=== PATIENT | female | born 1985 | race Caucasian/White ===

== ENCOUNTER 2025-04-07 11:28 | Emergency (ER) | payer OTHER, SELFPAY ==
[2025-04-07] VITALS (15 sets, daily range): BP systolic 103–155; BP diastolic 60–107; PULSE 55–84; RESP 12–20; TEMP 36.6–36.8; O2SAT 98–100; BMI 53.8
--- NOTE | 2025-04-07 11:48 | RAD_ITS ---
PROCEDURE: CHEST 1 VIEW (PORTABLE) 04/07/2025 REASON FOR EXAM: CHEST PAIN TECHNIQUE: Frontal view of the chest. COMPARISON: None FINDINGS: Hardware: EKG leads Heart: The heart size is normal. Lungs: The lungs are clear. Bones: The bones are unremarkable. RAD/Chest 1 View (Portable) IMPRESSION: No acute cardiopulmonary process Reading Location: [id number]
--- NOTE | 2025-04-07 11:49 | ED.VIS.CHEST ---
HPI History of Present Illness Chief Complaint: Chest Pain Detail of Chief Complaint: Chest pain Informant: patient Narrative Narrative: Patient presents with chest pain is here this morning around 7:45 AM. Patient states initially she experiencing sharp stabbing pain in her left chest. Pain and became dull and pressure and heavy like radiating to her jaw and neck and left arm. She continues to have the pain and rates it about an 8 out of 10. She states that yesterday she had some mild shortness of breath with walking which is unusual. She did have recent travel where she drove to [place] 2 weeks ago which is about 6 hours away. No prior history of PE or DVT. Her father had stents in his heart and in his 50s. She herself has no medical history otherwise. She denies recent illness. PFSH PFSH Allergy/AdvReac Type Severity Reaction Status Date / Time No Known Allergies Allergy Verified 04/07/25 11:31 Social History Smoking Status: Never smoker ROS ROS ED Review of Systems ROS Unobtainable: other Constitutional Constitutional ED: Reports lethargy; Denies chills, fever(s), sweats or weight loss Eyes Eyes: Denies blurry vision, change in vision or diplopia ENT ENT ED: Denies rhinorrhea or sore throat Cardiovascular Cardiovascular: Reports chest pain; Denies orthopnea or racing heartbeat Respiratory/Chest Respiratory/Chest: Reports dyspnea and dyspnea on exertion; Denies cough, orthopnea or sputum Gastrointestinal Gastrointestinal: Denies abdominal pain, diarrhea, nausea or vomiting Genitourinary Genitourinary ED: Denies dysuria, hematuria or urinary frequency Musculoskeletal Musculoskeletal: Denies arthralgias, back pain, myalgias or neck pain Integumentary Denies abscess, Abrasions or rash Neurologic Neurologic: Denies headache(s) or weakness Psychiatric Psychiatric: Denies anxiety, depression or suicidal thoughts Endocrine Endocrinology: Denies polydipsia, polyphagia or polyuria Hematologic/Lymphatic Hematologic/Lymphatic: Denies easy bleeding, easy bruising or lymphadenopathy Allergic/Immunologic Allergic/Immunologic ED: Denies mouth swelling, tongue swelling or urticaria EXAM Physical Exam Const Vital Signs: 04/07/25 11:29 04/07/25 12:08 04/07/25 12:09 Temperature 98.2 F Temperature Source Oral Pulse Rate 84 79 Respiratory Rate 18 Blood Pressure 151/107 H 132/81 H Blood Pressure Mean 121 Pulse Ox 98 Oxygen Delivery Method Room Air Room Air 04/07/25 12:41 04/07/25 12:45 04/07/25 13:00 Temperature Temperature Source Pulse Rate 71 65 67 Respiratory Rate 17 20 H 18 Blood Pressure 123/82 H 103/68 Blood Pressure Mean 96 80 Pulse Ox 100 100 Oxygen Delivery Method Room Air Room Air 04/07/25 13:15 04/07/25 13:30 04/07/25 13:31 Temperature Temperature Source Pulse Rate 68 Respiratory Rate 14 Blood Pressure 114/86 H 127/94 H Blood Pressure Mean 95 105 Pulse Ox 100 100 Oxygen Delivery Method Room Air 04/07/25 13:45 Temperature Temperature Source Pulse Rate 68 Respiratory Rate 15 Blood Pressure Blood Pressure Mean Pulse Ox 100 Oxygen Delivery Method Positive well nourished and well developed General Appearance ED: well developed and NAD HEENT Reports TM's clear and moist mucous membranes normocephalic and atraumatic; Negative for trauma or tenderness Tympanic Membrane ED: Yes TM's clear Eyes PERRL and EOMs intact bilaterally General Eye ED: Negative for pale conjunctiva or scleral icterus Neck no lymphadenopathy, supple and no JVD General: Negative for tenderness Chest Wall inspection of chest normal and palpation of chest normal Chest: Negative for tenderness Resp normal respiratory effort and clear to auscultation bilaterally Effort and Inspection: Negative for respiratory distress or pain with movement Auscultation: Negative for rhonchi, wheezes or diminished lung sounds Cardio regular rate, regular rhythm, S1 normal heart sound, S2 normal heart sound and no murmurs Peripheral Pulses: pulses 2+ throughout GI normal to inspection, nondistended, normoactive bowel sounds, soft to palpation, non-tender, non-distended and no masses Back/Spine no CVA tenderness and no thoracic nor lumbar tenderness Extremity normal to inspection General Extremety ED: Negative for edema General Extremity: Negative for edema Neuro oriented x3, CN's II-XII intact bilaterally, no sensory deficits noted and gait normal Sensorium / Orientation: awake, alert, oriented to person, oriented to place and oriented to time Motor Exam: strength 5/5 throughout and strength abnormal Psych mental status grossly normal Skin no rashes or lesions noted and no wounds Heart Score History: Moderately Suspicious ECG: Normal Age: </= 45 years Risk Factors: 1 or 2 Risk Factors Troponin: </= Normal Limit Score: 2 MDM MDM MDM Narrative Medical decision making narrative: Patient presents with sudden onset of chest discomfort radiating to the arm the neck and the jaw with shortness of breath and lightheadedness. Symptoms came on at rest while driving. She has no significant risk factors for heart disease. She did travel to [place] 2 weeks ago via car which is 6 hours away. On exam she clinically looks well. EKG obtained on arrival showed a sinus rhythm with ventricular rate of 81 bpm with no acute ST segment changes. Patient received aspirin and was given 1 sublingual nitro which did seem to improve her discomfort. CBC with differential obtained showed white count 6.9 with hemoglobin 13 and platelet count of 320. Chemistries unremarkable. D-dimer was elevated 0.92. First troponin was normal at less than 6. 2-hour delta troponin also normal at less than 6. Patient has been having discomfort now for over 7 hours. CTA of the chest was obtained which was negative for PE or dissection or acute process. Initially chest x-ray was obtained which was unremarkable. Patient has a heart score of 2. She is considered low risk. Etiology of her chest pain unclear. Shared medical decision making. We discussed follow-up with her primary care physician and further outpatient testing such as stress testing. Also discussed potentially looking to admit for inpatient stress testing although she is low risk. She is comfortable going home and following up as an outpatient. Patient advised to return if increasing chest pain, increasing shortness of breath with activity or exertion, or condition worsen anyway. Lab Data Attestation: I reviewed the patient's lab results. Labs: Laboratory Results - last 24 hr 04/07/25 04/07/25 11:40 13:48 WBC 6.9 RBC 4.40 Hgb 13.2 Hct 40.4 MCV 91.8 MCH 30.0 MCHC 32.7 RDW Std Deviation 43.7 RDW Coeff of Shira 12.9 Plt Count 320 MPV 9.7 Immature Gran % (Auto) 0.300 Neut % (Auto) 63.5 Lymph % (Auto) 26.1 Rolette % (Auto) 8.6 Eos % (Auto) 0.9 Baso % (Auto) 0.6 Absolute Neuts (auto) 4.4 Absolute Lymphs (auto) 1.79 Nucleated RBC % 0 D-Dimer Quant (PE/DVT) 0.92 H* Sodium 138 Potassium 4.1 Chloride 105 Carbon Dioxide 23.3 Anion Gap 10 BUN 12 Creatinine 0.79 Estim Creat Clear Calc 134.06 Est GFR (MDRD) Non-Af 97 BUN/Creatinine Ratio 14.9 Glucose 96 Calcium 9.1 Troponin T High Sens < 6 Troponin T Hi Sens 2 Hr < 6 Radiography Diagnostic Testing: Clinical Impression(s) from Imaging Studies Chest X-Ray 04/07/25 11:48 IMPRESSION: No acute cardiopulmonary process Reading Location: [id number] Chest CTA 04/07/25 12:30 IMPRESSION: No evidence of pulmonary embolism. The lungs are clear. Reading Location: [facility] 1 view chest x-ray obtained interpreted by myself as no evidence of infiltrate or pneumothorax or acute disease process. Radiology in agreement. Discharge Plan Triage Chief Complaint: Chest Pain ED Provider: Yaneli Hardin Dx/Rx/DC Orders Clinical Impression: Chest pain Instructions: ED Chest Pain, Uncertain Cause Primary Care Provider: HARLAN NEWMAN CNP Referrals: Town Doctor,Out of [Non-Staff, Medical] Activity Restrictions/Additional Instructions: Follow-up with your primary care physician within next 3 to 5 days. Return if persistent or worsening chest pain, exertional shortness of breath, or condition should worsen anyway. Print Language: German Disposition Disposition: Home, Self Care
[2025-04-07 11:56] LABS: Hematocrit 40.4 % (37-47); Hemoglobin 13.2 g/dL (12.0-15.0); Immature Granulocytes Count 0.020 X10^3/uL (0.0-0.0); Mean Corp Hgb Conc 32.7 g/dL (32-36); Mean Corpuscular Volume 91.8 fL (81-99); Mean Platelet Vol. 9.7 fl (6.2-12.0); NRBC Flagged by Analyzer 0 % (0-5); Platelet Count 320 K/mm3 (150-450); RBC Distribution Width CV 12.9 % (11.6-14.6); RBC Distribution Width SD 43.7 fl (35.1-43.9); Red Blood Count 4.40 M/mm3 (4.2-5.4); White Blood Count 6.9 K/mm3 (4.4-11.0)
--- NOTE | 2025-04-07 12:00 | EKG12_ITS ---
Test Reason : Blood Pressure : */* mmHG Vent. Rate : 81 BPM Atrial Rate : 81 BPM P-R Int : 118 ms QRS Dur : 76 ms QT Int : 370 ms P-R-T Axes : 37 32 34 degrees QTcB Int : 429 ms Normal sinus rhythm Normal ECG Confirmed by INOCENTE SEALS, DOV ([id number]), dry cell sealer SHADIA FARIA ([id number]) on 04/09/2025 9:02:08 AM Referred By: Confirmed By: DOV BROWER MD
[2025-04-07 12:09] LABS: D-Dimer Quantitative (DVT/PE) 0.92 FEU/ug/m (0.27-0.49)
[2025-04-07] MEDS: Nitroglycerin SL (ED/IMG/CATH) 0.4 MG TABLET SL (12:09)
[2025-04-07] MEDS: 0.9% Normal Saline (1000mL) 1,000 ML 150 ML IV (12:12)
--- NOTE | 2025-04-07 12:30 | CT_ITS ---
PROCEDURE: CTA CHEST W/WO CONTRAST 04/07/2025 REASON FOR EXAM: CHEST PAIN, ELEVATED D-DIMER TECHNIQUE: Procedure Code: [id number] Modality: CT Procedure: CTA CHEST W/WO CONTRAST Multiplanar Sagittal and Coronal images were obtained. 3D post processing was performed CONTRAST: Isovue 370 VOLUME: 100 mL One or more dose reduction techniques were used (e.g., Automated exposure control, adjustment of the mA and/or kV according to patient size, use of iterative reconstruction technique). RADIATION DOSE SUMMARY: CTDlvol: 12.5 mGy DLP: 519.07 mGycm COMPARISON: Prior chest radiograph done earlier in the day. FINDINGS: Hardware: EKG electrodes. Lymph nodes: Unremarkable Heart: The heart is nonenlarged. No coronary artery calcification is seen. Thoracic Aorta: No thoracic aortic aneurysm or dissection. Pulmonary Vessels: Well opacified. No evidence of pulmonary embolism. Lungs and Airways: Lungs are clear. Pleura: No pleural effusion. No pneumothorax. Upper Abdomen: Visualized portions of the upper abdominal viscera are unremarkable. Bones: Bone windows are unremarkable. CT/CTA Chest W/WO Contrast IMPRESSION: No evidence of pulmonary embolism. The lungs are clear. Reading Location: [place] [id number]
[2025-04-07 12:53] LABS: Anion Gap 10 (5-15); BUN 12 mg/dL (4-19); BUN/Creat Ratio 14.9 RATIO (10-20); Calcium,Total 9.1 mg/dL (7.6-11.0); Carbon Dioxide 23.3 mmol/L (21.0-32.0); Chloride 105 mmol/L (98-108); Estimated Creatinine Clearance 134.06 ml/min (50-250); Glucose 96 mg/dL (70-99); Potassium 4.1 mmol/L (3.3-5.1); Troponin T High Sensitivity < 6 ng/L (<=14)
[2025-04-07 14:23] LABS: Troponin T High Sens 2 HR < 6 ng/L (<=14)
== END 2025-04-07 15:14 | disposition home or self-care (01) ==
PROVIDERS: Emergency Provider Emergency Medicine; Visit Provider Emergency Medicine
DX: R07.9 Chest pain, unspecified (principal); R06.02 Shortness of breath; R42 Dizziness and giddiness; R68.84 Jaw pain; M79.602 Pain in left arm; Z82.49 Family history of ischemic heart disease and other diseases of the circulatory system
CPT/HCPCS: 71045; 71275; 80048; 84484; 85025; 85379; 93005; 96360; 96361; 99285; Q9967; A4216